=== PATIENT | female | born 1935 | race Asian ===

== ENCOUNTER 2017-09-16 06:47 | Inpatient (IN) | payer MEDICAID ==
[~2017-09-16] VITALS: Ht 152.4 cm; Wt 44.5 kg
[2017-09-16] MEDS ORDERED: TETANUS, DIPHTHERIA, PERTUSSIS VAC/PF 0.5ML (>7YR OLD) IM ONE (07:30)
[2017-09-16] MEDS ORDERED: LIDOCAINE HCL 1% 20ML VIAL (Pyxis) INJ MC ONE (07:30)
[2017-09-16 08:48] LABS: BASOPHILS % 0.4 % (0.0-2.0); EOSINOPHILS % 0.6 % (0.0-5.0); HEMATOCRIT. 37.3 % (36.0-48.0); HEMOGLOBIN. 12.8 g/dL (12.0-16.0); LYMPHOCYTES % 40.3 % (20.0-50.0); MEAN CORPUSCULAR HEMOGLOBIN 29.8 pg (28.0-32.0); MEAN PLATELET VOLUME 6.3 fl (7.4-10.4); MONOCYTES % 6.2 % (2.0-8.0); NEUTROPHILS % 52.5 % (40.0-76.0); PLATELET 459 x1000/uL (130-400); RED BLOOD CELL COUNT 4.29 mill/uL (4.2-5.4); RED CELL DISTRIBUTION WIDTH 15.8 % (11.6-14.6)
[2017-09-16] MEDS ORDERED: LIDOCAINE HCL/PF 1% 10 MG/ML 5ML VIAL ONE (08:48)
[2017-09-16 08:54] LABS: CHLORIDE 103 mEq/L (98-107)
[2017-09-16 08:55] LABS: PROTHROMBIN TIME 10.3 sec (9.4-11.6)
[2017-09-16 09:03] LABS: CREATINE KINASE 50 IU/L (26-192)
[2017-09-16 10:33] VITALS: BP 136/91
[2017-09-16 11:18] VITALS: BP 136/91
[2017-09-16] MEDS ORDERED: ACETAMINOPHEN 325MG TABLET PO PRN (11:45)
[2017-09-16] MEDS ORDERED: HYDROCODONE/ACETAMINOPHEN 5/325MG TABLET PO PRN (11:45)
[2017-09-16 12:15] VITALS: BP 127/78
[2017-09-16] MEDS ORDERED: DOCU-150 MT (13:44)
[2017-09-16] MEDS ORDERED: MULT-1146 MT (13:44)
[2017-09-16] MEDS ORDERED: TRAM50TA3 MT (13:44)
[2017-09-16] MEDS ORDERED: HYDR-4001 MT (13:44)
[2017-09-16] MEDS ORDERED: CARV3.1242 MT (13:44)
[2017-09-16] MEDS ORDERED: SENN-155 PO (13:44)
[2017-09-16] MEDS ORDERED: CHOL100036 MT (13:44)
[2017-09-16] MEDS ORDERED: ZINC220T MT (13:44)
[2017-09-16] MEDS ORDERED: ALEN70TA46 MT (13:44)
[2017-09-16] MEDS ORDERED: ASCO100T12 MT (13:44)
[2017-09-16 16:11] VITALS: BP 102/72
[2017-09-16] MEDS ORDERED: ONDANSETRON 4MG ODT PO PRN (16:30)
[2017-09-16] MEDS ORDERED: CLONIDINE 0.1MG TABLET PO PRN (16:30)
[2017-09-16] MEDS ORDERED: CARVEDILOL 3.125 MG TABLET PO SCH (17:00)
[2017-09-16] MEDS ORDERED: DOCUSATE SODIUM 100MG CAPSULE PO SCH (17:00)
[2017-09-16 20:00] VITALS: BP 91/52
[2017-09-16] MEDS ORDERED: SENNOSIDES 8.6MG TABLET PO SCH (21:00)
[2017-09-17] VITALS: BP 102/49
[2017-09-17 00:39] VITALS: BP 96/55
[2017-09-17] MEDS ORDERED: LEVOTHYROXINE SODIUM 50MCG TABLET PO SCH (07:10)
[2017-09-17] MEDS ORDERED: ASCORBIC ACID 250 MG TABLET PO SCH (09:00)
[2017-09-17] MEDS ORDERED: MULTIVITAMINS,THER W-MINERALS TABLET PO SCH (09:00)
[2017-09-17] MEDS ORDERED: ZINC SULFATE 220 MG ( 50 ) CAPSULE PO SCH (09:00)
== END 2017-09-17 00:50 | disposition short-term general hospital (02) | DRG 82 ==
LOC: ER 06:47 → 8WST 09:12 → ENRESERV 09:45
PROVIDERS: ADMIT Internal Medicine; ATTEND Internal Medicine
PROC: 0HQ1XZZ Repair Face Skin, External Approach (ICD-10-PCS; principal; 2017-09-16)
DX: S01.111A Laceration without foreign body of right eyelid and periocular area, initial encounter (principal); E43 Unspecified severe protein-calorie malnutrition; L89.899 Pressure ulcer of other site, unspecified stage; F03.90 Unspecified dementia, unspecified severity, without behavioral disturbance, psychotic disturbance, mood disturbance, and anxiety; E78.00 Pure hypercholesterolemia, unspecified; F25.9 Schizoaffective disorder, unspecified; E78.5 Hyperlipidemia, unspecified; I10 Essential (primary) hypertension; M81.0 Age-related osteoporosis without current pathological fracture; E03.9 Hypothyroidism, unspecified; E87.1 Hypo-osmolality and hyponatremia; Z86.718 Personal history of other venous thrombosis and embolism; Z79.899 Other long term (current) drug therapy; Z68.1 Body mass index [BMI] 19.9 or less, adult
CPT/HCPCS: 12013; 36415; 51702; 70450; 70486; 71045; 72125; 72170; 72192; 80053; 80061; 82550; 83880; 84443; 84484; 85025; 85610; 90471; 90715; 93005; 99285; J3490; A4315